=== PATIENT | female | born 1975 | race Two or more races ===

== ENCOUNTER 2016-10-09 23:20 | Emergency (ER) | payer OTHER ==
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
== END 2016-10-10 02:36 | disposition home or self-care (01) ==
LOC: CED 23:20
DX: S13.4XXA Sprain of ligaments of cervical spine, initial encounter (principal); S09.90XA Unspecified injury of head, initial encounter; F17.200 Nicotine dependence, unspecified, uncomplicated; V49.50XA Passenger injured in collision with unspecified motor vehicles in traffic accident, initial encounter; Y92.410 Unspecified street and highway as the place of occurrence of the external cause
CPT/HCPCS: 72040; 73030; 96372; 99284; J1885